=== PATIENT | female | born 1935 | race Caucasian/White ===

== ENCOUNTER 2018-11-08 13:13 | Inpatient (IN) | payer MEDICARE, OTHER ==
[~2018-11-08] VITALS: Ht 170.2 cm; Wt 42.0 kg
[2018-11-08] MEDS ORDERED: heparin 10,000 units/1 ML INJ IV PRN (13:35)
[2018-11-08] MEDS ORDERED: ondansetron/PF 4mg/2ml inj IV ONE (13:35)
[2018-11-08] MEDS ORDERED: metoprolol tartrate 1mg/ml inj IV ONE (13:35)
[2018-11-08 13:41] LABS: BASOPHILS # (AUTO) 0.1 X10'3 (0-0.2); EOSINOPHILS # (AUTO) 0.1 X10'3 (0-0.9); EOSINOPHILS % (AUTO) 0.9 % (0-6); HEMATOCRIT 28.9 % (35.0-45.0); HEMOGLOBIN 9.6 g/dl (12.0-16.0); LYMPHOCYTES # (AUTO) 0.9 X10'3 (1.1-4.8); LYMPHOCYTES % (AUTO) 10.8 % (21-51); MEAN CORPUSCULAR HEMOGLOBIN 30.3 PG (27.0-31.0); MEAN CORPUSCULAR HGB CONC 33.2 g/dL (33.0-36.5); MEAN CORPUSCULAR VOLUME 91.5 FL (78-98); MEAN PLATELET VOLUME 9.5 FL (7.4-10.4); MONOCYTES # (AUTO) 0.5 X10'3 (0-0.9); MONOCYTES % (AUTO) 5.6 % (2-12); NEUTROPHILS # (AUTO) 6.8 X10'3 (1.8-7.7); NEUTROPHILS % (AUTO) 81.7 % (42-75); PLATELET COUNT 189 X10'3 (140-440); RED BLOOD COUNT 3.16 X10'6 (4.20-5.60); WHITE BLOOD COUNT 8.3 X10'3 (4.5-11.0)
[2018-11-08 13:55] LABS: PARTIAL THROMBOPLASTIN TIME 66 SECONDS (22-32)
[2018-11-08 13:57] LABS: ALANINE AMINOTRANSFERASE 32 U/L (12-78); ALBUMIN 3.5 G/DL (3.4-5.0); ALBUMIN/GLOBULIN RATIO 1.1 (1.1-1.5); ALKALINE PHOSPHATASE 61 IU/L (46-116); ANION GAP 11 (8-16); ASPARTATE AMINO TRANSFERASE 25 U/L (10-37); BILIRUBIN,TOTAL 0.4 MG/DL (0.1-1.0); BLOOD UREA NITROGEN 26 MG/DL (7-18); BUN/CREATININE RATIO 23.4 (6.6-38.0); CALCIUM 8.9 MG/DL (8.5-10.1); CHLORIDE 107 MMOL/L (99-107); CREATININE 1.11 MG/DL (0.40-0.90); GLUCOSE 104 MG/DL (70-104); POTASSIUM 3.8 MMOL/L (3.5-5.1); SODIUM 143 MMOL/L (135-145); TOTAL CARBON DIOXIDE 25.4 MMOL/L (24-32); TOTAL PROTEIN 6.6 G/DL (6.4-8.2); eGFR 47 ML/MIN
[2018-11-08] MEDS: heparin 25,000 UNIT/250ml bag 250 ML IV SCH ×2 (14:34→16:14)
[2018-11-08] MEDS ORDERED: mag hydrox/Alum hydrox/simeth 30ml oral suspension PO PRN (14:40)
[2018-11-08] MEDS ORDERED: magnesium hydroxide 30ml (MOM) UD suspension PO PRN (14:40)
[2018-11-08] MEDS ORDERED: acetaminophen 325mg tablet PO PRN (14:40)
[2018-11-08] MEDS ORDERED: ondansetron/PF 4mg/2ml inj IV PRN (14:40)
[2018-11-08] MEDS ORDERED: morphine 2 MG/ML inj. syringe IV PRN ×2 (14:40)
[2018-11-08] MEDS ORDERED: nitroGLYCERIN 0.4mg SUBLingual tab SL PRN (14:40)
[2018-11-08 15:04] LABS: D-DIMER 1.76 MG/L FEU (0-0.50)
--- NOTE | 2018-11-08 15:25 | NUR ---
Patient in room PCU 3015. I have received report from Braxton BURT and had the opportunity to ask questions and assume patient care.
[2018-11-08 15:30] VITALS: BP 154/90
--- NOTE | 2018-11-08 15:35 | NUR ---
Problems reprioritized. Patient report given, questions answered & plan of care reviewed with Briana BURT.
--- NOTE | 2018-11-08 15:40 | NUR ---
Patient in room PCU 3015. I have received report from Eladio SHERWOOD and had the opportunity to ask questions and assume patient care. Patient was oriented to room, call light within reach, physical assessment and skin check performed. Vital signs obtained, telemetry monitoring initiated. Patient refuses to remove her brief and declined to use a wick. Patient was educated on risks for skin breakdown by continuing to wear her briefs, and also encouraged to use call light if she has an incontinent episode and needs to change out of wet briefs.
[2018-11-08] MEDS ORDERED: IBUP-1985 PO (16:00)
[2018-11-08] MEDS ORDERED: FLUO40CA PO (16:00)
[2018-11-08] MEDS ORDERED: HYDR-3972 PO (16:00)
[2018-11-08] MEDS ORDERED: ALBU8.5H8 IH (16:00)
[2018-11-08] MEDS ORDERED: TRAZ150T78 PO (16:00)
[2018-11-08] MEDS ORDERED: OMEP-50 PO (16:00)
[2018-11-08] MEDS ORDERED: NITR0.4T51 SL (16:00)
[2018-11-08] MEDS: HYDROcodone/acetaminophen 5mg/325mg tablet PO PRN (16:22)
[2018-11-08 17:05] LABS: HEMOGLOBIN A1C 5.3 % (4.5-6.2)
[2018-11-08] MEDS ORDERED: HYDROcodone/acetaminophen 10/325mg tab PO PRN (17:30)
[2018-11-08] MEDS ORDERED: albuterol 2.5 MG/3 ML nebule NEB PRN (17:40)
[2018-11-08] MEDS: furosemide 20 MG/2 ML vial IV SCH (17:55)
--- NOTE | 2018-11-08 18:33 | NUR ---
Patient in room PCU 3015b. I have received report from JAVED Warren and had the opportunity to ask questions and assume patient care. Patient on Heparin gtt at 800 units per provider order. On room air. Awake for bedside report and stable at this time. Daughters at bedside. Will continue to monitor closely.
[2018-11-08 19:00] VITALS: BP 160/90
--- NOTE | 2018-11-08 19:05 | NUR ---
Patient's PTT [address] Aguirre notified of patient weight and new order for bolus of 1500 units obtained and per protocol will increase to 900 units/hr post bolus. Will continue to monitor closely.
[2018-11-08] MEDS: carvedilol 6.25mg tablet PO SCH (20:11)
[2018-11-08] MEDS: traZODone 150mg tablet PO SCH (20:11)
[2018-11-08 23:00] VITALS: BP 126/68
--- NOTE | 2018-11-08 23:25 | NUR ---
No documentation of Nitroglycerin paste patch found. Removed at 2320. Addendum: 11/08/18 at 2333 by Juan Garcia RN Noted on Nitro paste administration time of 1135.
[2018-11-09 01:29] LABS: CLARITY,URINE CLEAR (Clear); COLOR,URINE YELLOW (Yellow); GLUCOSE, URINE NEGATIVE (Neg); KETONES,URINE NEGATIVE (Neg); LEUKOCYTE ESTERASE ,URINE NEGATIVE (Neg); NITRITES, URINE NEGATIVE (Neg); OCCULT BLOOD,URINE NEGATIVE (Neg); PH,URINE 5.5 (4.8-8.0); PROTEIN,URINE NEGATIVE (Neg); UROBILINOGEN,URINE 0.2 E.U/dL (0.2-1.0)
[2018-11-09 01:32] LABS: UA COLLECTION TYPE NON-SPECIFIED
[2018-11-09 01:34] LABS: HEMATOCRIT 27.2 % (35.0-45.0); HEMOGLOBIN 9.2 g/dl (12.0-16.0); MEAN CORPUSCULAR HEMOGLOBIN 30.7 PG (27.0-31.0); MEAN CORPUSCULAR HGB CONC 33.7 g/dL (33.0-36.5); MEAN PLATELET VOLUME 9.7 FL (7.4-10.4); PLATELET COUNT 168 X10'3 (140-440); RED BLOOD COUNT 2.99 X10'6 (4.20-5.60); RED CELL DISTRIBUTION WIDTH 15.2 % (11.5-14.5); WHITE BLOOD COUNT 7.5 X10'3 (4.5-11.0)
[2018-11-09 01:38] LABS: ALBUMIN 3.2 G/DL (3.4-5.0); ANION GAP 10 (8-16); BLOOD UREA NITROGEN 24 MG/DL (7-18); BUN/CREATININE RATIO 23.5 (6.6-38.0); CALCIUM 8.2 MG/DL (8.5-10.1); CHLORIDE 107 MMOL/L (99-107); CHOL/HDL RATIO 2.6 (0.00-4.99); CHOLESTEROL 152 MG/DL (0-200); CREATININE 1.02 MG/DL (0.40-0.90); GLUCOSE 89 MG/DL (70-104); HDL CHOLESTEROL 59 MG/DL (35-60); LDL CHOLESTEROL 75 MG/DL (50-100); POTASSIUM 3.4 MMOL/L (3.5-5.1); SODIUM 143 MMOL/L (135-145); TOTAL CARBON DIOXIDE 25.8 MMOL/L (24-32); TRIGLYCERIDES 71 MG/DL (20-135); eGFR 52 ML/MIN
--- NOTE | 2018-11-09 01:50 | NUR ---
0110 PTT 52 and with in therapeutic range for cardiac DVT protocol. No rate change at this time. Heparin infusing at 900 units/hr. Nest PTT to be drawn at 0710.
[2018-11-09 01:55] LABS: TOTAL CELLS COUNTED 100
[2018-11-09 01:56] LABS: ANISOCYTOSIS 1+; PLATELET ESTIMATE NORMAL
[2018-11-09 01:57] LABS: BURR CELLS 1+
[2018-11-09 03:00] VITALS: BP 142/63
[2018-11-09] MEDS ORDERED: potassium Cl 20 mEq SR tablet PO PRN (04:35)
[2018-11-09] MEDS ORDERED: magnesium 4gm in 100ml NS 100 ML IV PRN (04:35)
[2018-11-09] MEDS ORDERED: potassium CL 10mEq/100ml bag 100 ML IV PRN (04:35)
[2018-11-09] MEDS ORDERED: magnesium Cl slow-release 64mg tablet PO PRN (04:35)
--- NOTE | 2018-11-09 04:36 | NUR ---
Patient's potassium 3.4. No orders for K/Mag replacement. Dr. Aguirre notified and new orders obtained for K/Mag replacement.
[2018-11-09] MEDS: HYDROcodone/acetaminophen 5mg/325mg tablet PO PRN ×2 (04:44→15:27)
[2018-11-09] MEDS: potassium Cl 20 mEq SR tablet PO PRN ×3 (04:45→13:40)
[2018-11-09 06:00] VITALS: BP 143/65
--- NOTE | 2018-11-09 06:13 | NUR ---
Patient in room PCU 3015. I have received report from Kirk BURT and had the opportunity to ask questions and assume patient care. Pt is in bed sleeping, all needs met at this time.
--- NOTE | 2018-11-09 06:25 | NUR ---
Problems reprioritized. Patient report given, questions answered & plan of care reviewed with JAVED Lopez.
[2018-11-09] MEDS: FLUoxetine 20mg capsule PO SCH (07:12)
[2018-11-09] MEDS: furosemide 20 MG/2 ML vial IV SCH (07:12)
[2018-11-09] MEDS: pantoprazole 40mg Tablet.DR PO SCH (07:12)
[2018-11-09] MEDS: aspirin 81mg tablet.DR PO SCH (07:12)
[2018-11-09] MEDS: carvedilol 6.25mg tablet PO SCH ×2 (07:13→20:35)
[2018-11-09] MEDS: heparin 25,000 UNIT/250ml bag 250 ML IV SCH (07:55)
--- NOTE | 2018-11-09 10:16 | NUR ---
After consultation w/ Parvin Briseno EVENT [facility], received orders to start HH diet no caffeine
[2018-11-09] MEDS ORDERED: nitroGLYCERIN 0.4mg SUBLingual tab SL PRN (10:30)
[2018-11-09] MEDS ORDERED: metoprolol tartrate 1mg/ml inj IV PRN (10:30)
[2018-11-09] MEDS ORDERED: regadenoson 0.4mg/5ml syringe IV ONE (10:30)
[2018-11-09] MEDS ORDERED: aminophylline 250mg/10ml inj. IV PRN (10:30)
[2018-11-09] MEDS ORDERED: regadenoson 0.4mg/5ml syringe IV SCH (10:40)
[2018-11-09 11:00] VITALS: BP 119/48
--- NOTE | 2018-11-09 11:32 | NUR ---
PAGER ID: [phone] MESSAGE: [id number]: Chetan Vazquez: Pt is requesting Immodium for diarrhea. Thanks Jessica [phone] Addendum: 11/09/18 at 1149 by Jessica Cabrrea RN Received orders from Dr. Benavidez for Immodium q6h prn for diarrhea
[2018-11-09] MEDS: loperamide 2mg capsule PO PRN ×2 (11:44→18:39)
[2018-11-09 15:00] VITALS: BP 128/53
--- NOTE | 2018-11-09 16:31 | NUR ---
Pt with low BMI of 14.5 using pt stated wt of 92 lbs. Pt seen at bedside reports low appetite since losing 11 years ago resulting in 30 lb wt loss. Pt reports UBW 88 lbs however states wt was up to 94 lbs a month ago. No documented wt hx in EMR however pt appears to have a chronically low wt per pt statements. Pt likely meeting nutrient needs with average 75% PO intake on heart healthy diet despite pt reporting low appetite, although noted that pt c/o hunger prior to diet advancement from NPO per MD notes. Pt with no edema or significant decrease in muscle strength. Pt reports visible clavicle is normal. D/t patient meeting nutrient needs with good PO intake and likely chronically low wt without recent wt loss, pt currently does not meet criteria for malnutrition at this time. Pt reports diarrhea this morning which pt was given Imodium for. Pt agreeable to toast with dinner tonight, d/w dietary. Will continue to follow. Addendum: 11/09/18 at [address] Amended: Links added.
--- NOTE | 2018-11-09 18:21 | NUR ---
Problems reprioritized. Patient report given, questions answered & plan of care reviewed with Jennifer BURT.
[2018-11-09 19:00] VITALS: BP 120/53
[2018-11-09] MEDS: traZODone 150mg tablet PO SCH (20:34)
[2018-11-09] MEDS ORDERED: lisinopril 10 MG tablet PO SCH (21:00)
[2018-11-09 23:00] VITALS: BP 104/53
[2018-11-10] VITALS (13 sets, daily range): BP systolic 120–133; BP diastolic 43–61
[2018-11-10 05:49] LABS: BASOPHILS # (AUTO) 0.1 X10'3 (0-0.2); BASOPHILS % (AUTO) 0.8 % (0-1); EOSINOPHILS # (AUTO) 0.3 X10'3 (0-0.9); EOSINOPHILS % (AUTO) 4.5 % (0-6); HEMATOCRIT 26.8 % (35.0-45.0); HEMOGLOBIN 8.9 g/dl (12.0-16.0); LYMPHOCYTES # (AUTO) 1.3 X10'3 (1.1-4.8); MEAN CORPUSCULAR HEMOGLOBIN 30.6 PG (27.0-31.0); MEAN CORPUSCULAR HGB CONC 33.1 g/dL (33.0-36.5); MEAN CORPUSCULAR VOLUME 92.3 FL (78-98); MEAN PLATELET VOLUME 9.9 FL (7.4-10.4); MONOCYTES # (AUTO) 0.7 X10'3 (0-0.9); MONOCYTES % (AUTO) 9.5 % (2-12); NEUTROPHILS # (AUTO) 4.7 X10'3 (1.8-7.7); NEUTROPHILS % (AUTO) 66.2 % (42-75); PLATELET COUNT 186 X10'3 (140-440); RED CELL DISTRIBUTION WIDTH 15.2 % (11.5-14.5)
[2018-11-10 06:17] LABS: ALBUMIN 2.8 G/DL (3.4-5.0); ANION GAP 6 (8-16); BLOOD UREA NITROGEN 31 MG/DL (7-18); BUN/CREATININE RATIO 28.7 (6.6-38.0); CHLORIDE 110 MMOL/L (99-107); CREATININE 1.08 MG/DL (0.40-0.90); GLUCOSE 98 MG/DL (70-104); POTASSIUM 4.8 MMOL/L (3.5-5.1); SODIUM 144 MMOL/L (135-145); TOTAL CARBON DIOXIDE 28.5 MMOL/L (24-32); eGFR 48 ML/MIN
--- NOTE | 2018-11-10 06:45 | NUR ---
Problems reprioritized. Patient report given, questions answered & plan of care reviewed with Jessica BURT and Bernice BURT.
--- NOTE | 2018-11-10 06:53 | NUR ---
Patient in room PCU 3015. I have received report from Jennifer BURT and had the opportunity to ask questions and assume patient care. Pt is in bed sleeping, will continue to monitor.
[2018-11-10] MEDS: aspirin 81mg tablet.DR PO SCH (07:58)
[2018-11-10] MEDS: carvedilol 6.25mg tablet PO SCH (07:58)
[2018-11-10] MEDS: FLUoxetine 20mg capsule PO SCH (07:59)
[2018-11-10] MEDS: pantoprazole 40mg Tablet.DR PO SCH (07:59)
[2018-11-10] MEDS: furosemide 20 MG/2 ML vial IV SCH (07:59)
[2018-11-10] MEDS: HYDROcodone/acetaminophen 5mg/325mg tablet PO PRN (11:46)
--- NOTE | 2018-11-10 13:18 | NUR ---
PAGER ID: [phone] MESSAGE: [id number] Chetan Vazquez: Jewell results are in, no definite fixed or reversible perfusion defect is seen, can we start feeding her? Thanks Jessica [phone]
[2018-11-10] MEDS ORDERED: ASPI-1071 PO (13:58)
[2018-11-10] MEDS ORDERED: FURO-150 PO (13:58)
[2018-11-10] MEDS ORDERED: LISI10TA4 PO (13:58)
[2018-11-10] MEDS ORDERED: CARV6.253 PO (13:58)
[2018-11-10] MEDS ORDERED: ATOR10TA PO (13:59)
--- NOTE | 2018-11-10 15:23 | NUR ---
Patient stable for discharge per MD order. All discharge paperwork, Rx, and instructions reviewed with patient and daughters; all questions were answered. New prescription orders given to patient's daughter per patient request. PIV discontinued, cannula was intact. Clean, dry, dressing in place with no bleeding noted. monitoring analyst #[id number] removed and returned. All personal belongings collected and sent with patient. Patient wheeled to [facility] by RN at 1510, transport in private vehicle by family member.
== END 2018-11-10 15:20 | disposition home or self-care (01) | DRG 280 ==
LOC: ER 13:14 → PCU 3S 15:41
PROVIDERS: ADMIT Internal Medicine; ATTEND Internal Medicine
PROC: 4A02XM4 Measurement of Cardiac Total Activity, External Approach (ICD-10-PCS; principal; 2018-11-10)
PROC: 3E033HZ Introduction of Radioactive Substance into Peripheral Vein, Percutaneous Approach (ICD-10-PCS; 2018-11-10)
DX: I21.4 Non-ST elevation (NSTEMI) myocardial infarction (principal); I50.21 Acute systolic (congestive) heart failure; E43 Unspecified severe protein-calorie malnutrition; N17.9 Acute kidney failure, unspecified; I51.81 Takotsubo syndrome; Z68.1 Body mass index [BMI] 19.9 or less, adult; D64.9 Anemia, unspecified; F32.9 Major depressive disorder, single episode, unspecified; G47.00 Insomnia, unspecified; G89.29 Other chronic pain; I25.10 Atherosclerotic heart disease of native coronary artery without angina pectoris; J44.9 Chronic obstructive pulmonary disease, unspecified; K21.9 Gastro-esophageal reflux disease without esophagitis; N18.3 Chronic kidney disease, stage 3 (moderate); Z60.2 Problems related to living alone; Z79.82 Long term (current) use of aspirin; Z88.0 Allergy status to penicillin; Z88.8 Allergy status to other drugs, medicaments and biological substances; Z79.899 Other long term (current) drug therapy; Z90.710 Acquired absence of both cervix and uterus; Z95.1 Presence of aortocoronary bypass graft; Z90.49 Acquired absence of other specified parts of digestive tract
CPT/HCPCS: 36415; 78452; 80048; 80053; 80061; 81003; 82948; 83036; 83880; 84484; 85025; 85379; 85610; 85730; 93005; 93017; 93306; 94760; 96374; 96375; 99285; A9500; G0378; J0280; J1644; J1940; J2405; J2785; J3490

== ENCOUNTER 2020-03-29 06:15 | Inpatient (IN) | payer MEDICARE, OTHER ==
[~2020-03-29] VITALS: Ht 170.2 cm; Wt 40.2 kg
[~2020-03-29 06:15] MED LIST: ALBU8.5H8 IH; ASPI-1071 PO; ATOR10TA PO; CARV6.253 PO; FLUO40CA PO; FURO-150 PO; HYDR-3972 PO; LISI10TA27 PO; NITR0.4T51 SL; OMEP-50 PO; TRAZ150T78 PO
[2020-03-29 11:18] VITALS: BP 120/60
--- NOTE | 2020-03-29 11:20 | NUR ---
Pt arrived to [facility] via transport from [facility]. S, Hospitalist Group and Dr. Get montenegrod for orders/assignment. Rtn call pending.
--- NOTE | 2020-03-29 11:48 | NUR ---
Called Dr Hazel to notify pt's arrival. [facility] hospitalist to do admission orders.
[2020-03-29] MEDS ORDERED: nitroGLYCERIN 0.4mg SUBLingual tab SL PRN (12:30)
[2020-03-29] MEDS ORDERED: albuterol 2.5 MG/3 ML nebule NEB PRN (12:30)
[2020-03-29] MEDS ORDERED: magnesium hydroxide 30ml (MOM) UD suspension PO PRN (12:35)
[2020-03-29] MEDS ORDERED: bisacodyl 10mg suppository rectal RC PRN (12:35)
[2020-03-29] MEDS ORDERED: magnesium Cl slow-release 64mg tablet PO PRN (12:35)
[2020-03-29] MEDS ORDERED: potassium Cl 20 mEq SR tablet PO PRN ×2 (12:35)
[2020-03-29] MEDS ORDERED: HYDROcodone/acetaminophen 5mg/325mg tablet PO PRN (12:35)
[2020-03-29] MEDS ORDERED: acetaminophen 325mg tablet PO PRN ×2 (12:35)
[2020-03-29] MEDS ORDERED: acetaminophen 650mg rectal suppository RC PRN (12:35)
[2020-03-29] MEDS: normal saline 1000ml 1,000 ML IV SCH ×2 (12:35→22:35)
[2020-03-29] MEDS ORDERED: morphine 2 MG/ML inj. syringe IV PRN (12:35)
[2020-03-29] MEDS ORDERED: potassium Cl 40MEQ/1/2NS 520ml 520 ML IV PRN ×2 (12:35)
[2020-03-29] MEDS ORDERED: diphenhydrAMINE 25mg capsule PO PRN (12:35)
[2020-03-29] MEDS ORDERED: magnesium 4gm in 100ml NS 100 ML IV PRN (12:35)
[2020-03-29] MEDS ORDERED: magnesium 2GM in 50ml NS 50 ML IV PRN (12:35)
[2020-03-29] MEDS ORDERED: mag hydrox/Alum hydrox/simeth 30ml oral suspension PO PRN (12:35)
[2020-03-29] MEDS ORDERED: LISI20TA28 PO (13:29)
[2020-03-29] MEDS ORDERED: CARV-50 PO (13:29)
[2020-03-29] MEDS ORDERED: LISI40TA13 PO (13:29)
[2020-03-29] MEDS ORDERED: HYDR25TA4 PO (13:29)
[2020-03-29] MEDS ORDERED: GABA-530 PO (13:31)
--- NOTE | 2020-03-29 13:31 | NUR ---
PAGER ID: [phone] MESSAGE: Sheila Med/surg [id number]. Pt: George. RM: 352. Pt code status is DNR/comfort focused tx. copy of POLST in chart. also pt had abd CT without contrast 03/29/20 from [facility]. Dr Hazel is aware. Do you still want her to have another CT?
[2020-03-29] MEDS: morphine 2 MG/ML inj. syringe IV PRN ×2 (13:48→18:21)
[2020-03-29] MEDS: HYDROcodone/acetaminophen 10/325mg tab PO PRN ×2 (16:15→21:25)
[2020-03-29 17:02] LABS: BASOPHILS % (AUTO) 0.1 % (0-1); EOSINOPHILS % (AUTO) 0 % (0-6); HEMATOCRIT 22.7 % (35.0-45.0); HEMOGLOBIN 7.4 g/dl (12.0-16.0); LYMPHOCYTES # (AUTO) 0.6 X10'3 (1.1-4.8); LYMPHOCYTES % (AUTO) 4.1 % (21-51); MEAN CORPUSCULAR HEMOGLOBIN 31.3 PG (27.0-31.0); MEAN CORPUSCULAR HGB CONC 32.4 g/dL (33.0-36.5); MEAN CORPUSCULAR VOLUME 96.5 FL (78-98); MEAN PLATELET VOLUME 10.7 FL (7.4-10.4); MONOCYTES # (AUTO) 0.9 X10'3 (0-0.9); MONOCYTES % (AUTO) 6.3 % (2-12); NEUTROPHILS # (AUTO) 12.1 X10'3 (1.8-7.7); NEUTROPHILS % (AUTO) 89.5 % (42-75); PLATELET COUNT 115 X10'3 (140-440); RED BLOOD COUNT 2.35 X10'6 (4.20-5.60); RED CELL DISTRIBUTION WIDTH 16.9 % (11.5-14.5); WHITE BLOOD COUNT 13.5 X10'3 (4.5-11.0)
[2020-03-29 17:21] LABS: ANISOCYTOSIS 1+; LARGE PLATELETS FEW; PLATELET ESTIMATE DECREASED
[2020-03-29 17:28] LABS: ALANINE AMINOTRANSFERASE 37 U/L (12-78); ALBUMIN 3.3 G/DL (3.4-5.0); ALBUMIN/GLOBULIN RATIO 0.9 (1.1-1.5); ALKALINE PHOSPHATASE 66 IU/L (46-116); ANION GAP 10 (8-16); ASPARTATE AMINO TRANSFERASE 51 U/L (10-37); BILIRUBIN,TOTAL 0.3 MG/DL (0.1-1.0); CALCIUM 9.5 MG/DL (8.5-10.1); CHLORIDE 107 MMOL/L (99-107); GLUCOSE 165 MG/DL (70-104); PHOSPHORUS 4.9 MG/DL (2.3-4.5); POTASSIUM 5.7 MMOL/L (3.5-5.1); SODIUM 140 MMOL/L (135-145); TOTAL CARBON DIOXIDE 23.4 MMOL/L (24-32)
[2020-03-29 17:33] LABS: MAGNESIUM 4.5 MG/DL (1.5-2.4)
[2020-03-29 17:36] LABS: BLOOD UREA NITROGEN 95 MG/DL (7-18); BUN/CREATININE RATIO 65.5 (6.6-38.0); CREATININE 1.45 MG/DL (0.40-0.90); eGFR 34 ML/MIN
--- NOTE | 2020-03-29 17:42 | NUR ---
PAGER ID: [phone] MESSAGE: [facility] Med/Surg. [id number]. Pt: George. Rm:352. Critical lab: Mg 4.5. FYI: Pt has AB- blood; if need blood transfusion has to be sent from [place]. it will take about 4hr. thanks
[2020-03-29] MEDS ORDERED: furosemide 40mg/4ml inj IV ONE (18:15)
[2020-03-29] MEDS ORDERED: calcium chloride 100 MG/1 ML inj IV ONE (18:15)
[2020-03-29] MEDS ORDERED: metroNIDAZOLE-Flagyl 500mg/NS 100 ML IV SCH ×2 (18:20→22:36)
--- NOTE | 2020-03-29 18:30 | NUR ---
Patient in room CARLITA 352. I have received report from Sheila BURT and had the opportunity to ask questions and assume patient care.
[2020-03-29] MEDS ORDERED: vancomycin/NS 1 GM ADD-VANTAGE 250 ML IV PRN (18:35)
[2020-03-29] MEDS ORDERED: vancomycin/NS 1 GM ADD-VANTAGE 250 ML IV ONE (18:40)
--- NOTE | 2020-03-29 19:04 | NUR ---
Problems reprioritized. Patient report given, questions answered & plan of care reviewed with JAVED Berrios. Burroughs cath was placed as ordered per Dr Munguia. CT scan repeated. Pt lethargic and confused. c/o back pain, medicated RN.
[2020-03-29] MEDS ORDERED: calcium chloride inj. 1,000 MG in NS 100ml IV soln (110ml) IV ONE (19:05)
[2020-03-29] MEDS ORDERED: calcium chloride inj. 1,000 MG in normal saline 100ml IV soln 90 ML IV ONE (19:09)
[2020-03-29] MEDS: ondansetron/PF 4mg/2ml inj IV PRN (19:19)
[2020-03-29 20:00] VITALS: BP 154/71
[2020-03-29] MEDS ORDERED: carvedilol 6.25mg tablet PO SCH (20:00)
[2020-03-29] MEDS ORDERED: heparin, porcine 5000 units/ml vial SQ SCH (20:00)
[2020-03-29] MEDS ORDERED: K and/or MAG REPLACEMENT MC SCH (20:00)
[2020-03-29] MEDS ORDERED: traZODone 150mg tablet PO SCH (21:00)
[2020-03-29] MEDS ORDERED: lisinopril 20mg tablet PO SCH (21:00)
[2020-03-29] MEDS ORDERED: lisinopril 10 MG tablet PO SCH (21:00)
[2020-03-29 21:20] VITALS: BP 146/80
[2020-03-29] MEDS: furosemide 40mg/4ml inj IV SCH (21:21)
[2020-03-29] MEDS: gabapentin 100mg capsule PO SCH (21:22)
[2020-03-29] MEDS: carVEDilol 12.5mg tablet PO SCH (21:22)
[2020-03-29] MEDS: cefepime 1GM/NS ADD-VANTAGE 100 ML IV SCH (23:43)
[2020-03-30 00:12] VITALS: BP 154/70
[2020-03-30] MEDS: morphine 2 MG/ML inj. syringe IV PRN ×2 (00:21→05:35)
[2020-03-30] MEDS: HYDROcodone/acetaminophen 10/325mg tab PO PRN ×2 (01:17→08:25)
[2020-03-30] MEDS ORDERED: VANCOMYCIN LEVEL IV SCH (03:00)
--- NOTE | 2020-03-30 06:23 | NUR ---
Problems reprioritized. Patient report given, questions answered & plan of care reviewed with Sheila BURT.
--- NOTE | 2020-03-30 06:39 | NUR ---
Patient in room CARLITA 352. I have received report from JAVED Berrios and had the opportunity to ask questions and assume patient care.
[2020-03-30 06:45] LABS: BASOPHILS % (AUTO) 0.1 % (0-1); EOSINOPHILS % (AUTO) 0 % (0-6); LYMPHOCYTES # (AUTO) 0.4 X10'3 (1.1-4.8); LYMPHOCYTES % (AUTO) 2.6 % (21-51); MEAN CORPUSCULAR HEMOGLOBIN 31.6 PG (27.0-31.0); MEAN CORPUSCULAR HGB CONC 32.7 g/dL (33.0-36.5); MEAN CORPUSCULAR VOLUME 96.8 FL (78-98); MEAN PLATELET VOLUME 10.8 FL (7.4-10.4); MONOCYTES % (AUTO) 6.7 % (2-12); NEUTROPHILS # (AUTO) 13.4 X10'3 (1.8-7.7); NEUTROPHILS % (AUTO) 90.6 % (42-75); PLATELET COUNT 96 X10'3 (140-440); RED BLOOD COUNT 2.03 X10'6 (4.20-5.60); RED CELL DISTRIBUTION WIDTH 17.5 % (11.5-14.5); WHITE BLOOD COUNT 14.8 X10'3 (4.5-11.0)
[2020-03-30 07:23] LABS: ALANINE AMINOTRANSFERASE 35 U/L (12-78); ALBUMIN/GLOBULIN RATIO 0.9 (1.1-1.5); ALKALINE PHOSPHATASE 59 IU/L (46-116); ANION GAP 12 (8-16); ASPARTATE AMINO TRANSFERASE 46 U/L (10-37); BILIRUBIN,TOTAL 0.3 MG/DL (0.1-1.0); BLOOD UREA NITROGEN 98 MG/DL (7-18); BUN/CREATININE RATIO 66.2 (6.6-38.0); CALCIUM 9.8 MG/DL (8.5-10.1); CHLORIDE 109 MMOL/L (99-107); CHOL/HDL RATIO 2.3 (0.00-4.99); CHOLESTEROL 135 MG/DL (0-200); CREATININE 1.48 MG/DL (0.40-0.90); GLUCOSE 142 MG/DL (70-104); HDL CHOLESTEROL 60 MG/DL (35-60); LDL CHOLESTEROL 46 MG/DL (50-100); PHOSPHORUS 5.3 MG/DL (2.3-4.5); POTASSIUM 5.1 MMOL/L (3.5-5.1); SODIUM 143 MMOL/L (135-145); TOTAL CARBON DIOXIDE 22.5 MMOL/L (24-32); TOTAL PROTEIN 6.3 G/DL (6.4-8.2); TRIGLYCERIDES 127 MG/DL (20-135); eGFR 34 ML/MIN
[2020-03-30 07:33] LABS: MAGNESIUM 4.4 MG/DL (1.5-2.4)
[2020-03-30 07:40] LABS: HEMATOCRIT 19.7 % (35.0-45.0); HEMOGLOBIN 6.4 g/dl (12.0-16.0)
[2020-03-30 07:43] LABS: ANISOCYTOSIS 1+; LARGE PLATELETS FEW; PLATELET ESTIMATE DECREASED
[2020-03-30 07:44] LABS: SCHISTOCYTES FEW
--- NOTE | 2020-03-30 07:44 | NUR ---
PAGER ID: [phone] MESSAGE: [facility] Med/Surg. [id number]. Pt: George. Rm: 352. Critical Labs: H&H 6.4/19.7, Mg 4.4. thanks
[2020-03-30 07:45] LABS: BURR CELLS 1+; ELLIPTOCYTES FEW
[2020-03-30 08:00] VITALS: BP 118/56
[2020-03-30] MEDS ORDERED: HYDROchlorothiazide 25mg tablet PO SCH (08:00)
[2020-03-30] MEDS ORDERED: furosemide 20MG tablet PO SCH (08:00)
[2020-03-30] MEDS ORDERED: pantoprazole 40mg Tablet.DR PO SCH (08:00)
[2020-03-30] MEDS ORDERED: atorvastatin 10mg tablet PO SCH (08:00)
[2020-03-30] MEDS ORDERED: FLUoxetine 20mg capsule PO SCH (08:00)
[2020-03-30] MEDS: cefepime 1GM/NS ADD-VANTAGE 100 ML IV SCH (08:17)
[2020-03-30] MEDS: furosemide 40mg/4ml inj IV SCH (08:21)
[2020-03-30] MEDS: carVEDilol 12.5mg tablet PO SCH (08:24)
[2020-03-30] MEDS: gabapentin 100mg capsule PO SCH (08:24)
[2020-03-30] MEDS: ondansetron/PF 4mg/2ml inj IV PRN (08:39)
--- NOTE | 2020-03-30 10:57 | NUR ---
Malnutrition consult: Pt reports 2-13 lb wt loss with decreased appetite per malnutrition risk screen with RN. Most recent documented wt hx in EMR is 42 kg in February 2018 however is not scaled, current scaled weight is 40.2 kg, severely underweight at 65% IBW. Pt admit for possible small-bowel obstruction from left inguinal hernia, pt currently NPO. Surgeon recommends to hold off on placing and NG tube at this time. Pt with low Omer of 12, no edema or wounds. Pt documented with severe decrease in muscle strength with cachectic appearance. Per H&P patient's daughter reports pt "has been completely not able to take care of herself", likely pt with suboptimal PO intake [employer]. Pt meets criteria for severe malnutrition. Pt documented as A/O x 1 and confused, not appropriate for malnutrition education at this time. No nutrition intervention appropriate given NPO status. Will continue to follow closely and make recommendations as appropriate that are in line with patient's plan of care. Recommendations: 1) Advance to low fiber diet as medically indicated 2) Bowel care per rx 3) Scaled weights per rx 4) Will make further nutrition recommendations pending additional information regarding patient's plan of care Addendum: 03/30/20 at [address] Amended: Links added.
[2020-03-30 11:00] VITALS: BP 115/55
[2020-03-30] MEDS ORDERED: LORazepam 2 mg/ml vial IV PRN (13:15)
[2020-03-30] MEDS ORDERED: morphine 10mg/0.5ml (conc. morphine) oral syringe PO PRN (13:15)
[2020-03-30] MEDS ORDERED: morphine 2 MG/ML inj. syringe IV ONE (13:35)
--- NOTE | 2020-03-30 18:28 | NUR ---
Problems reprioritized. Patient report given, questions answered & plan of care reviewed with JAVED Berrios. Pt is comfort care, has been resting peacefully for over 2hr after medicated for pain.
--- NOTE | 2020-03-30 18:30 | NUR ---
Patient in room CARLITA 352. I have received report from Sheila BURT and had the opportunity to ask questions and assume patient care.
[2020-03-30] MEDS: morphine 4 MG/ML inj SYRINge IV PRN (18:58)
[2020-03-30 19:00] VITALS: BP 101/29
[2020-03-31] MEDS: morphine 4 MG/ML inj SYRINge IV PRN ×2 (03:26→09:45)
[2020-03-31 06:30] VITALS: BP 103/46
--- NOTE | 2020-03-31 06:45 | NUR ---
Patient in room CARLITA 352. I have received report from JAVED Berrios and had the opportunity to ask questions and assume patient care.
--- NOTE | 2020-03-31 06:54 | NUR ---
Problems reprioritized. Patient report given, questions answered & plan of care reviewed with Gertrudis RN.
--- NOTE | 2020-03-31 12:46 | NUR ---
RN IS TO DOCUMENT YES TO ALL APPLICABLE AREAS Pronouncement of : 1. Time Physician Notified:[id number] 2. Date of :03/31/2020 3. Time of : 1246 4. DNR/Withdraw life support documented:Y 5. Monitor strip has been placed on chart: 6. Assessment process is of one-minute duration and includes following criteria: a) Patient is unresponsive to all stimuli:Y b) Pupils fixed and non-reactive:Y c) Auscultation of precordium reveals absence of heart tones:Y d) Auscultation of lungs reveals absence of breath sounds:Y e) Absence of blood pressure / all vital signs:Y f) QRS complexes are not present on monitor / EKG strip:Y g) Pacer spikes without capture:N/A 4. Comments:Pt's daughter, Kimberlee, notified. RN to notify [facility] & mort[facility].
== END 2020-03-31 13:52 | disposition expired | DRG 393 ==
LOC: UNDOADMIN 10:41 → SUR 3N 10:41
PROVIDERS: ADMIT Family Medicine; ATTEND Family Medicine
DX: K40.30 Unilateral inguinal hernia, with obstruction, without gangrene, not specified as recurrent (principal); E43 Unspecified severe protein-calorie malnutrition; S42.402A Unspecified fracture of lower end of left humerus, initial encounter for closed fracture; J93.9 Pneumothorax, unspecified; R64 Cachexia; Z68.1 Body mass index [BMI] 19.9 or less, adult; I13.0 Hypertensive heart and chronic kidney disease with heart failure and stage 1 through stage 4 chronic kidney disease, or unspecified chronic kidney disease; D64.9 Anemia, unspecified; E78.5 Hyperlipidemia, unspecified; F03.90 Unspecified dementia, unspecified severity, without behavioral disturbance, psychotic disturbance, mood disturbance, and anxiety; G62.9 Polyneuropathy, unspecified; H54.8 Legal blindness, as defined in USA; I25.10 Atherosclerotic heart disease of native coronary artery without angina pectoris; I48.91 Unspecified atrial fibrillation; I50.9 Heart failure, unspecified; G89.29 Other chronic pain; W18.39XA Other fall on same level, initial encounter; M54.9 Dorsalgia, unspecified; J44.9 Chronic obstructive pulmonary disease, unspecified; N18.9 Chronic kidney disease, unspecified; K21.9 Gastro-esophageal reflux disease without esophagitis; F32.9 Major depressive disorder, single episode, unspecified; M81.0 Age-related osteoporosis without current pathological fracture; R29.6 Repeated falls; R62.7 Adult failure to thrive; Z66 Do not resuscitate; Z79.899 Other long term (current) drug therapy; Z95.1 Presence of aortocoronary bypass graft; Y93.89 Activity, other specified; Y92.89 Other specified places as the place of occurrence of the external cause; Y99.8 Other external cause status; I25.2 Old myocardial infarction; Z90.49 Acquired absence of other specified parts of digestive tract; Z90.710 Acquired absence of both cervix and uterus; Z88.0 Allergy status to penicillin; Z88.8 Allergy status to other drugs, medicaments and biological substances; I46.9 Cardiac arrest, cause unspecified; Z51.5 Encounter for palliative care
CPT/HCPCS: 36415; 71270; 74176; 80053; 80061; 80202; 83036; 83605; 83735; 84100; 84145; 84443; 85008; 85025; 86870; 86885; 86900; 86901; 86905; 87040; 87081; 93306; G0378; J0692; J1644; J1940; J2270; J2405; J3370; J3490; J7030